=== PATIENT | male | born 1990 | race Asian ===

== ENCOUNTER 2017-05-10 11:43 | Emergency (ER) | payer OTHER ==
[~2017-05-10] VITALS: Ht 180.3 cm; Wt 79.5 kg
[2017-05-10] MEDS ORDERED: IBUPROFEN 600 MG TABLET PO ONE (12:30)
[2017-05-10] MEDS ORDERED: IBUPROFEN 800 MG TABLET PO ONE (12:30)
[2017-05-10 13:41] VITALS: BP 135/88
== END 2017-05-10 14:01 | disposition home or self-care (01) ==
LOC: EMS 11:46
DX: S46.911A Strain of unspecified muscle, fascia and tendon at shoulder and upper arm level, right arm, initial encounter (principal); F17.210 Nicotine dependence, cigarettes, uncomplicated; F12.90 Cannabis use, unspecified, uncomplicated; V43.52XA Car driver injured in collision with other type car in traffic accident, initial encounter; Y93.89 Activity, other specified; Y92.411 Interstate highway as the place of occurrence of the external cause; Y99.8 Other external cause status
CPT/HCPCS: 72040; 99284; 99406